=== PATIENT | female | born 1990 | race Caucasian/White ===

== ENCOUNTER 2018-05-30 07:30 | Emergency (ER) | payer BC ==
--- NOTE | 2018-05-30 07:56 | UC ---
Respiratory Complaint HPI - HPI Summary HPI Summary: 1 WEEK OF SINUS PRESSURE. FELT LIKE THE RIGHT SIDE OF HER FACE WAS SWOLLEN YESTERDAY. PUT SOME ICE ON IT AND IS NOW IMPROVED. TOOK AN [id number] SINUS RELIEVER AND IBUPROFEN WITH IMPROVEMENT OF SYMPTOMS. DENIES FEVER OR NASAL CONGESTION, COUGH, NAUSEA/VOMITING. NO SORE THROAT OR EAR PAIN. - History of Current Complaint Chief Complaint: UCRespiratory Stated Complaint: SINUS COMPLAINT Time Seen by Provider: 05/30/18 07:46 Hx Obtained From: Patient Hx Last Menstrual Period: 05/22/18 Onset/Duration: Gradual Onset, Lasting Days, Still Present Timing: Constant Severity Initially: Moderate Severity Currently: Moderate Pain Intensity: 4 Pain Scale Used: 0-10 Numeric Aggravating Factors: Nothing Alleviating Factors: OTC Meds Associated Signs And Symptoms: Negative: Dyspnea, Fever, Wheezing, URI, Nasal Congestion - Allergies/Home Medications Allergies/Adverse Reactions: Allergies Allergy/AdvReac Type Severity Reaction Status Date / Time No Known Allergies Allergy Verified 05/30/18 07:41 Home Medications: Home Medications Ibuprofen TAB* [Advil TAB*] 200 mg PO Q6H PRN 05/30/18 [History Confirmed ] PMH/Surg Hx/FS Hx/Imm Hx Previously Healthy: Yes - Surgical History Surgical History: Yes Surgery Procedure, Year, and Place: cholecystectomy - Family History Known Family History: Negative: Hypertension - Social History Alcohol Use: Occasionally Substance Use Type: None Smoking Status (MU): Never Smoked Tobacco Review of Systems Constitutional: Negative Respiratory: Negative Cardiovascular: Negative Gastrointestinal: Negative Neurological: Headache All Other Systems Reviewed And Are Negative: Yes Physical Exam Triage Information Reviewed: Yes Appearance: Well-Appearing, No Pain Distress, Well-Nourished Vital Signs: Initial Vital Signs Temp 96.4 F 05/30/18 07:36 Pulse 58 05/30/18 07:36 Resp 16 05/30/18 07:36 BP 185/93 05/30/18 07:36 Pulse Ox 98 05/30/18 07:36 Vital Signs Reviewed: Yes Eyes: Positive: Conjunctiva Clear ENT: Positive: Hearing grossly normal, Pharynx normal, TMs normal Neck: Positive: Supple, Nontender, No Lymphadenopathy Respiratory Exam: Normal Cardiovascular Exam: Normal Abdomen Description: Positive: Soft Musculoskeletal: Positive: No Edema Neurological: Positive: Alert Psychological: Positive: Age Appropriate Behavior Skin: Negative: rashes UC Diagnostic Evaluation - Laboratory O2 Sat by Pulse Oximetry: 98 Respiratory Course/Dx - Course Course Of Treatment: RECHECK BP 155/90. PATIENT STATES THAT SINCE YESTERDAY HER SYMPTOMS ARE ACTUALLY IMPROVING. DISCUSSED WITH HER MY CONCERN FOR UNDERLYING CONDITION GIVEN HER ELEVATED BLOOD PRESSURE. DISCUSSED TRANSFER TO ED. PATIENT DECLINES. ADVISED THAT SHE COULD BE RISKING WORSENING OF HER CONDITION THAT COULD POSE A THREAT TO HER LIFE, HEALTH AND MEDICAL SAFETY. SHE VERBALIZES UNDERSTANDING AND CONTINUES TO DECLINE TRANSFER. STATES SHE WILL F/U WITH HER PCP. - Differential Dx/Diagnosis Provider Diagnoses: 1. SINUS PRESSURE. 2. ELEVATED BP Discharge - Sign-Out/Discharge Documenting (check all that apply): Patient Departure - Discharge Plan Condition: Stable Disposition: HOME Patient Education Materials: Sinusitis (ED) Referrals: Jamia Darby MD [Primary Care Provider] - 1 Week Additional Instructions: YOUR SINUS SYMPTOMS ARE IMPROVING AND HOPEFULLY WILL CONTINUE TO DO SO. AVOID IBUPROFEN AND DECONGESTANTS THAT MAY ELEVATE YOUR BLOOD PRESSURE. USE TYLENOL FOR DISCOMFORT. FOLLOW-UP WITH DR. DARBY THIS WEEK TO DISCUSS YOUR BLOOD PRESSURE. GO TO ER WITHOUT FAIL IF YOU DEVELOP WORSENING HEADACHE, SHORTNESS OF BREATH, CHEST PAIN, NAUSEA, SWEATS, DIZZINESS OR ANY OTHER CONCERNING SYMPTOMS. YOU HAVE DECLINED TRANSFER TO THE ED TODAY WITH THE UNDERSTANDING THAT YOUR CONDITION MAY WORSEN LEADING TO STROKE, RESPIRATORY DISTRESS/FAILURE, CARDIAC ARREST, /DISABILITY. - Billing Disposition and Condition Condition: STABLE Disposition: Home
[2018-05-30 08:01] VITALS: BP 155/90
== END 2018-05-30 08:18 | disposition home or self-care (01) ==
LOC: UCEAST 07:30
DX: J34.89 Other specified disorders of nose and nasal sinuses (principal); R03.0 Elevated blood-pressure reading, without diagnosis of hypertension
CPT/HCPCS: 99211; G0463